=== PATIENT | male | born 1975 | race Caucasian/White ===

== ENCOUNTER 2022-06-04 15:52 | Emergency (ER) | payer BC ==
[2022-06-04 19:54] VITALS: BP 161/102; PULSE 123
[2022-06-04] MEDS ORDERED: Cephalexin 500 MG Cap PO ONE (20:50)
== END 2022-06-04 21:15 | disposition home or self-care (01) ==
LOC: JD.ED 15:52
DX: N39.0 Urinary tract infection, site not specified (principal); I10 Essential (primary) hypertension; Z88.0 Allergy status to penicillin; Z88.2 Allergy status to sulfonamides; Z79.899 Other long term (current) drug therapy
CPT/HCPCS: 81001; 87086; 87088; 87186; 99283; A9270